=== PATIENT | male | born 1980 | race Caucasian/White ===

== ENCOUNTER 2017-03-21 16:47 | Emergency (ER) | payer OTHER ==
[2017-03-21] MEDS ORDERED: Acetaminophen/HYDROcodone 325-10 MG Tab PO ONE (16:48)
--- NOTE | 2017-03-21 18:51 | EDM.PDOC ---
ED HPI GENERAL MEDICAL PROBLEM - General Chief Complaint: Lower Extremity Injury/Pain Stated Complaint: ANKLE PAINS, [id number] Time Seen by Provider: 03/21/17 18:50 Source of Information: Reports: Patient History Limitations: Reports: No Limitations - History of Present Illness INITIAL COMMENTS - FREE TEXT/NARRATIVE: twisted this am Right Ankle Pain Score (Numeric/FACES): 6 - Related Data Allergies Allergy/AdvReac Type Severity Reaction Status Date / Time No Known Allergies Allergy Verified 03/21/17 16:52 Home Meds: Home Meds Ibuprofen 400 mg PO PRN 03/21/17 [History] Ranitidine HCl [Ranitidine] 300 mg PO DAILY 03/21/17 [History] Past Medical History Oncologic (Cancer) History: Reports: Other (See Below) Other Oncologic History: testicle - Past Surgical History Male Surgical History: Reports: Other (See Below) Other Male Surgeries/Procedures: right testicle removed r/t cancer Social & Family History - Family History Family Medical History: Noncontributory - Tobacco Use Smoking Status *Q: Never Smoker - Caffeine Use Caffeine Use: Reports: Coffee - Recreational Drug Use Recreational Drug Use: No Review of Systems - Review of Systems Review Of Systems: ROS reveals no pertinent complaints other than HPI. ED EXAM, GENERAL - Physical Exam Exam: See Below Exam Limited By: No Limitations General Appearance: Alert, WD/WN, No Apparent Distress Ears: Hearing Grossly Normal Throat/Mouth: Normal Voice, No Airway Compromise Head: Atraumatic Neck: Non-Tender, Full Range of Motion Respiratory/Chest: No Respiratory Distress Cardiovascular: Regular Rate, Rhythm GI/Abdominal: Soft, Non-Tender Extremities: Other (right ankle swollen tender R/P, NV wnl, gait limited to pain.) Neurological: Alert, Oriented, Normal Cognition, No Motor/Sensory Deficits Psychiatric: Normal Affect, Normal Mood, Other Skin Exam: Warm, Dry, Normal Color Lymphatic: No Adenopathy Course - Vital Signs Last Recorded V/S: Last Vital Signs Temp 36.6 C 03/21/17 16:56 Pulse 76 03/21/17 19:14 Resp 18 03/21/17 19:14 BP 148/73 H 03/21/17 19:14 Pulse Ox 98 03/21/17 19:14 - Re-Assessments/Exams Free Text/Narrative Re-Assessment/Exam: 03/21/17 19:53 results discussed with pt. Departure - Departure Time of Disposition: 19:53 Disposition: Home, Self-Care 01 Condition: Good Clinical Impression: Ankle sprain Qualifiers: Encounter type: initial encounter Involved ligament of ankle: calcaneofibular ligament Laterality: right Qualified Code(s): S93.411A - Sprain of calcaneofibular ligament of right ankle, initial encounter - Discharge Information Instructions: Ankle Sprain, [id number] Forms: ED Department Discharge Additional Instructions: 1) elevate leg as much as possible next 24 hours 2) avoid running 3) recheck as needed rx togo; norco x1
[2017-03-21] MEDS ORDERED: Acetaminophen/HYDROcodone 325-10 MG Tab ONE (19:51)
== END 2017-03-21 19:59 | disposition home or self-care (01) ==
LOC: DL.ED 16:47
DX: S93.411A Sprain of calcaneofibular ligament of right ankle, initial encounter (principal); X50.1XXA Overexertion from prolonged static or awkward postures, initial encounter
CPT/HCPCS: 73610-RT; 99283; A9270-GY

== ENCOUNTER 2021-06-16 10:05 | Emergency (ER) | payer BC ==
[2021-06-16 11:27] LABS: CHLORIDE,CL 101 mmol/L (98-107); SODIUM,NA 139 mmol/L (136-145)
== END 2021-06-16 11:48 | disposition home or self-care (01) ==
LOC: DL.ED 10:05
DX: J40 Bronchitis, not specified as acute or chronic (principal)
CPT/HCPCS: 36415; 71045; 80053; 83605; 84484; 85025; 85379; 87040; 93005; 99285-25

== ENCOUNTER 2021-11-22 04:34 | Emergency (ER) | payer BC | END 2021-11-22 06:22 | disposition home or self-care (01) | LOC: DL.ED 04:34 | DX: J02.0 Streptococcal pharyngitis (principal); Z79.82 Long term (current) use of aspirin; Z79.899 Other long term (current) drug therapy | CPT/HCPCS: 87430; 99283 ==

== ENCOUNTER 2023-07-22 21:33 | Emergency (ER) | payer BC | END 2023-07-22 21:51 | LOC: DL.ED 21:33 | DX: Z53.21 Procedure and treatment not carried out due to patient leaving prior to being seen by health care provider (principal) ==